=== PATIENT | female | born 1960 | race Caucasian/White ===

== ENCOUNTER → 2016-12-03 | Outpatient (CLI) | payer BC, OTHER ==
--- NOTE | 2016-12-04 09:09 | REP ---
RIGHT FOREARM: HISTORY: Pain after a fall. COMPARISON: None. There is a fracture involving the distal radius which has an intraarticular component. IMPRESSION: Linear nondisplaced fracture of the distal radius with an intraarticular component. RIGHT WRIST, FOUR VIEWS: HISTORY: Pain after trauma. There is a fracture involving the distal radius which is linear and nondisplaced and communicates with the articular surface. In addition, there is a subtle nondisplaced fracture involving the ulnar styloid. This too, is nondisplaced. IMPRESSION: Distal radial and ulnar fractures as described above. Signed by James Zelaya DO 12/04/2016 09:59 A
== END ==
LOC: M LRY 18:06
PROVIDERS: ATTEND Nurse Practitioner Family
DX: S69.91XA Unspecified injury of right wrist, hand and finger(s), initial encounter (principal); S49.91XA Unspecified injury of right shoulder and upper arm, initial encounter; X58.XXXA Exposure to other specified factors, initial encounter; Y92.89 Other specified places as the place of occurrence of the external cause